=== PATIENT | female | born 1945 | race Caucasian/White ===

== ENCOUNTER 2021-07-26 12:39 | Emergency (ER) | payer OTHER ==
[~2021-07-26] VITALS: Ht 170.2 cm; Wt 77.1 kg
[2021-07-26] MEDS ORDERED: EFFEXOR XR150 MG PO (12:52)
[2021-07-26] MEDS ORDERED: LEVOTHYROXINE25 MCG PO (12:52)
[2021-07-26] MEDS ORDERED: SEROQUEL200 MG PO (12:52)
== END 2021-07-26 16:29 | disposition home or self-care (01) ==
LOC: ER 12:39
DX: N81.6 Rectocele (principal); N81.10 Cystocele, unspecified